=== PATIENT | female | born 1985 | race Caucasian/White ===

== ENCOUNTER 2017-09-05 10:13 | Emergency (ER) | payer MEDICAID ==
[2017-09-05 10:49] VITALS: BP 127/75
[2017-09-05] MEDS ORDERED: Bacitracin Oint 1 GM U/D Packet TOP ONE (10:59)
--- NOTE | 2017-09-05 11:10 | CR ---
Fingers Third Digit Rt F7 HISTORY: smashed finger in a door. FINDINGS: No acute fracture or dislocation right third finger is identified. Bony architecture and joint space s are preserved. Soft tissues laceration is noted distally. IMPRESSION: Soft tissue laceration distal right third finger. No fracture or dislocation is identified.
--- NOTE | 2017-09-05 11:11 | EDM.PDOC ---
ED HPI GENERAL MEDICAL PROBLEM - General Chief Complaint: Laceration Stated Complaint: HURT RT MIDDLE FINGER Time Seen by Provider: 09/05/17 11:07 Source of Information: Reports: Patient History Limitations: Reports: No Limitations - History of Present Illness INITIAL COMMENTS - FREE TEXT/NARRATIVE: pt caught her rt middle finger in a door at home. She is very uncomfortabl with the finger. 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 OB/BYN History: one eight year old child; lives with dad Musculoskeletal History: Reports: Fracture, Neck Pain, Chronic Other Musculoskeletal History: r foot Neurological History: Reports: Migraines Psychiatric History: Reports: Addiction Dermatologic History: Reports: Other (See Below) Other Dermatologic History: warts on feet - Infectious Disease History Infectious Disease History: Reports: Chicken Pox - Past Surgical History HEENT Surgical History: Reports: Oral Surgery Social & Family History - Family History Family Medical History: Noncontributory - Tobacco Use Smoking Status *Q: Current Every Day Smoker Years of Tobacco use: 10 Packs/Tins Daily: 1 Used Tobacco, but Quit: No Second Hand Smoke Exposure: Yes - Caffeine Use Caffeine Use: Reports: Soda - Alcohol Use Days Per Week of Alcohol Use: 2 Number of Drinks Per Day: 4 Total Drinks Per Week: 8 - Recreational Drug Use Recreational Drug Use: Yes Drug Use in Last 12 Months: Yes Recreational Drug Type: Reports: Marijuana/Hashish Recreational Drug Use Frequency: Daily Recreational Drug Last Use: t-1 - Living Situation & Occupation Living situation: Reports: Single Occupation: Employed ED ROS GENERAL - Review of Systems Review Of Systems: See Below Constitutional: Reports: No Symptoms HEENT: Reports: No Symptoms Respiratory: Reports: No Symptoms Cardiovascular: Reports: No Symptoms Endocrine: Reports: No Symptoms GI/Abdominal: Reports: No Symptoms : Reports: No Symptoms ED EXAM, SKIN/RASH Exam: See Below Text/Narrative:: pt injured the tip of the rt middle finger. She has avulsed some of the skin at the base of the nail. She is current with her tetanus. Exam Limited By: No Limitations General Appearance: Alert, Anxious, Mild Distress Ears: Normal TMs Nose: Normal Inspection Throat/Mouth: Normal Inspection Head: Atraumatic Extremities: Other ( rt middle finger was shut in a door at home. A xray of the finger was obtained which did not how a fracture. The finger was soaked. ) Neurological: Alert, Oriented Course - Vital Signs Last Recorded V/S: Last Vital Signs Temp 35.3 C 09/05/17 10:51 Pulse 56 L 09/05/17 10:48 Resp 15 09/05/17 10:51 BP 127/75 09/05/17 10:51 Pulse Ox 98 09/05/17 10:48 - Orders/Labs/Meds Meds: Medications Discontinued Medications Generic Name Dose Route Start Last Admin Trade Name Freq PRN Reason Stop Dose Admin Bacitracin 1 dose 09/05/17 10:59 09/05/17 11:09 Bacitracin Oint 1 Gm TOP 09/05/17 11:00 1 dose ONETIME ONE Administration Ibuprofen 600 mg 09/05/17 11:19 Motrin PO 09/05/17 11:20 ONETIME ONE Lidocaine HCl 5 ml 09/05/17 10:58 Xylocaine-Mpf 1% INJECT 09/05/17 10:59 ONETIME ONE - Re-Assessments/Exams Free Text/Narrative Re-Assessment/Exam: 09/05/17 11:20 The loose skin was removed. The wound was very superficial. It was cleaned and dressed with bacatracin. She was given a splint to use over the top of the wound to protect it. Departure - Departure Time of Disposition: 11:22 Disposition: Home, Self-Care 01 Condition: Fair Clinical Impression: Abrasion of right middle finger - Discharge Information Referrals: Jazmin Pickering NP [Primary Care Provider] - Forms: ED Department Discharge Care Plan Goals: elevate, cool pack to the site, use the splint for protection, dress the wound daily with bacatracin starting sunday am. Soak the finger daily prior to dressing it. motriin 600mg q6h prn for pain ,
[2017-09-05] MEDS ORDERED: Ibuprofen 600 MG Tab PO ONE (11:19)
== END 2017-09-05 11:39 | disposition home or self-care (01) ==
LOC: JP.ED 10:13
DX: S60.412A Abrasion of right middle finger, initial encounter (principal); F17.210 Nicotine dependence, cigarettes, uncomplicated; W23.0XXA Caught, crushed, jammed, or pinched between moving objects, initial encounter; Y92.009 Unspecified place in unspecified non-institutional (private) residence as the place of occurrence of the external cause
CPT/HCPCS: 73140; 99283; A9270